=== PATIENT | female | born 1975 | race Two or more races ===

== ENCOUNTER 2021-01-06 00:15 | Emergency (ER) | payer MEDICAID ==
[~2021-01-06] VITALS: Ht 160 cm; Wt 81.8 kg
[2021-01-06] MEDS ORDERED: CLON0.1T2 PO (00:31)
[2021-01-06] MEDS ORDERED: TraMADol HCL 50 MG TABLET PO ONE (02:15)
[2021-01-06 02:50] VITALS: BP 125/70
== END 2021-01-06 03:17 | disposition home or self-care (01) ==
LOC: EMS 00:17
DX: S93.401A Sprain of unspecified ligament of right ankle, initial encounter (principal); W18.40XA Slipping, tripping and stumbling without falling, unspecified, initial encounter; Y93.89 Activity, other specified; Y92.89 Other specified places as the place of occurrence of the external cause; Y99.8 Other external cause status
CPT/HCPCS: 29515; 99283

== ENCOUNTER 2021-05-20 23:16 | Emergency (ER) | payer MEDICAID ==
[~2021-05-20] VITALS: Ht 165.1 cm; Wt 102.0 kg
[~2021-05-20 23:16] MED LIST: CLON0.1T2 PO
[2021-05-20] MEDS ORDERED: IBUP-2070 PO (23:29)
[2021-05-20] MEDS ORDERED: ACET-3385 PO (23:29)
[2021-05-21] MEDS ORDERED: HYDROCODONE/ACETAMINOPHEN 5-325 MG TABLET PO ONE (01:30)
[2021-05-21] MEDS ORDERED: KETOROLAC TROMETHAMINE 30 MG/ML VIAL IM ONE (02:00)
[2021-05-21 02:14] VITALS: BP 122/68
== END 2021-05-21 02:26 | disposition home or self-care (01) ==
LOC: EMS 23:17
DX: M54.41 Lumbago with sciatica, right side (principal); E11.9 Type 2 diabetes mellitus without complications; Z79.899 Other long term (current) drug therapy
CPT/HCPCS: 96372; 99283; J1885